=== PATIENT | female | born 1995 | race Two or more races ===

== ENCOUNTER 2018-09-14 09:59 | Emergency (ER) | payer OTHER ==
[~2018-09-14] VITALS: Ht 157.5 cm; Wt 79.4 kg
[2018-09-14 10:11] VITALS: BP 142/94
[2018-09-14] MEDS ORDERED: DEXAMETHASONE 4 MG TABLET PO ONE (10:30)
[2018-09-14] MEDS ORDERED: DEXAMETHASONE 4 MG TABLET ONE (10:42)
== END 2018-09-14 11:00 | disposition home or self-care (01) ==
LOC: ED 10:54
DX: J02.8 Acute pharyngitis due to other specified organisms (principal); B34.9 Viral infection, unspecified
CPT/HCPCS: 87081; 87880; 99283